=== PATIENT | female | born 1940 | race Hispanic/Latino ===

== ENCOUNTER 2017-03-30 15:05 | Emergency (ER) | payer OTHER ==
[2017-03-30 15:26] VITALS: BP 141/65; PULSE 81; RESP 20; TEMP 98.4; O2SAT 98
--- NOTE | 2017-03-30 15:33 | ED PDOC ---
HPI: Abdomen Time Seen by Provider: 03/30/17 15:05 Chief Complaint (Nursing): Abdominal Pain Chief Complaint (Provider): Abdominal Pain History Per: Patient History/Exam Limitations: no limitations Onset/Duration Of Symptoms: Hrs Current Symptoms Are (Timing): Still Present Additional Complaint(s): 76 y/o female presents to the emergency department with a complaint of intermittent abdominal pain since this morning. Associated with nausea, 1 episode of vomiting and feeling sweaty although unsure of fever and chills. Denies diarrhea, chest pain, or previous abdominal surgeries. Past Medical History Reviewed: Historical Data, Nursing Documentation, Vital Signs Vital Signs: Last Vital Signs Temp 98.4 F 03/30/17 15:23 Pulse 81 03/30/17 15:23 Resp 20 03/30/17 15:23 BP 141/65 03/30/17 15:23 Pulse Ox 98 03/30/17 20:09 - Medical History PMH: No Chronic Diseases - Surgical History Surgical History: No Surg Hx - Family History Family History: States: Unknown Family Hx - Home Medications Home Medications: Ambulatory Orders Medication Instructions Recorded Ciprofloxacin HCl [Cipro] 500 mg PO BID #20 tablet 03/30/17 Ondansetron ODT [Zofran ODT] 4 mg PO Q8 PRN #10 odt 03/30/17 Tamsulosin [Flomax] 0.4 mg PO DAILY #10 cap 03/30/17 oxyCODONE/Acetaminophen [Percocet 1 ea PO Q6 PRN #8 tab 03/30/17 5/325 mg Tab] - Allergies Allergies/Adverse Reactions: Allergies Allergy/AdvReac Type Severity Reaction Status Date / Time Penicillins Allergy RASH Verified 03/30/17 15:26 Review of Systems ROS Statement: Except As Marked, All Systems Reviewed And Found Negative Constitutional: Positive for: Sweats. Negative for: Fever, Chills Cardiovascular: Negative for: Chest Pain Gastrointestinal: Positive for: Nausea, Vomiting (1 episode), Abdominal Pain. Negative for: Diarrhea Genitourinary Female: Positive for: Dysuria Physical Exam - Reviewed Nursing Documentation Reviewed: Yes Vital Signs Reviewed: Yes - Physical Exam Appears: Positive for: Non-toxic, No Acute Distress Head Exam: Positive for: ATRAUMATIC, NORMAL INSPECTION, NORMOCEPHALIC Skin: Positive for: Normal Color, Warm, Dry Neck: Positive for: Normal, Supple Cardiovascular/Chest: Positive for: Regular Rate, Rhythm. Negative for: Murmur Respiratory: Positive for: Normal Breath Sounds. Negative for: Accessory Muscle Use, Respiratory Distress Gastrointestinal/Abdominal: Positive for: Soft, Tenderness (Mild discomfort noted to the suprapubic region). Negative for: Normal Exam Back: Positive for: Normal Inspection. Negative for: L CVA Tenderness, R CVA Tenderness Neurologic/Psych: Positive for: Alert, Oriented (x3) - Laboratory Results Result Diagrams: 03/30/17 15:40 03/30/17 15:40 Urine dip results: Positive for: Blood. Negative for: Leukocyte Esterase, Nitrate, Ketones, Glucose, Bilirubin - ECG O2 Sat by Pulse Oximetry: 98 (RA) Pulse Ox Interpretation: Normal - Progress ED Course And Treament: morphine 4mg iv x 2 doses Pyridium 100mg x 1dose Zofran 4 mg iv x 1 dose NS 1 liter wide open Urine dip notes (+) blood (-) leuk (-) nitrate d/w Dr. Williamson. Will see patient outpateint for renal colic. Does not believe anemia attributed to hematuria from renal colic. Recommends antibiotics and f/u with him saturday. d/w Dr. Clay. Unable to contact pmd regarding baseline hgb level. Patient noted dark stools 2 days. Guiac exam in ED with no signs of hematochezia or melena. Stool sent for lab testing. FLomax 0.4 mg po x 1 dose Patient allergic to pcn. Cipro 400mg iv x 1 dose given. Feels improved in ED after flomax/morphine 4mg x 2 doses d/w patient recommendation to stay overnight for observation of hgb level. patient does not want to stay inpatient and states she will f/u with pmd on saturday. RIsks and benefits of admission d/w patient and AMA paperwork signed. Medical Decision Making Medical Decision Making: Time: 15:27 Initial impression: Abdominal pain Initial plan: --Labs --Lipase --Urinalysis --Abd & Pelvis CT --Morphine 4 mg IVP --Sodium Chloride 1L IV 500 mls/hr --Zofran 4 mg IVP --Phenazopyridine 100 mg PO --Reevaluation Time: 16:03 --Type and Screen --PTT and Prothrombin Time: 1710 --CT ABD/PEL FINDINGS: LOWER THORAX: The lung bases are clear. LIVER: The liver is normal in size. There are benign coarse calcifications in the hepatic dome. No gross lesion or ductal dilatation. GALLBLADDER AND BILE DUCTS: No calcified gallstones. PANCREAS: The pancreas is normal in size without ductal dilatation or calcifications. SPLEEN: The spleen is normal in size. ADRENALS: Both adrenal glands are normal in size without discrete nodule. KIDNEYS AND URETERS: There is mild edema and enlargement of the right kidney with perinephric fat stranding. There is mild right hydronephrosis, diffuse dilatation of the right ureteral and a 1 mm punctate stone in the right distal ureteral. There is also a 2 mm stone in the right posterolateral urinary bladder distal to the UV junction. The left kidney is normal in size without hydronephrosis or nephrolithiasis. VASCULATURE: There are early atherosclerotic aortoiliac calcifications. The aorta is not dilated. BOWEL: The small bowel loops are normal in caliber. There is colonic diverticulosis without CT evidence for acute diverticulitis. There is no bowel dilatation or obstruction. APPENDIX: Normal appendix. PERITONEUM: No free fluid. No free air. LYMPH NODES: No enlarged lymph nodes. BLADDER: Unremarkable. REPRODUCTIVE: Unremarkable. BONES: No acute fracture. Diffuse bone demineralization and mild multilevel degenerative disc disease. OTHER FINDINGS: None. IMPRESSION: Findings are consistent with recent passage of right ureteral stones with a 2 mm stone in the right posterolateral urinary bladder distal to the UV junction and a 1 mm punctate stone in the right distal ureter. No obstructive uropathy. Time: 1735 --Additional dosage of Rocephin 1gm IVPB and Toradol 10mg IVP ordered for pain management. Time: 174 --Urology consult with Dr. Danni Williamson for evaluation per CT findings. Scribe Attestation: Documented by Bessie Parker, acting as a scribe for Brendon Russell MD. Provider Scribe Attestation: All medical record entries made by the Scribe were at my direction and personally dictated by me. I have reviewed the chart and agree that the record accurately reflects my personal performance of the history, physical exam, medical decision making, and the department course for this patient. I have also personally directed, reviewed, and agree with the discharge instructions and disposition. Disposition - Clinical Impression Clinical Impression: Renal colic - Patient ED Disposition Is Patient to be Admitted: No - Disposition Referrals: Diego Williamson MD [Staff Provider] - Disposition: Routine/Home Disposition Time: 19:29 Condition: STABLE Prescriptions: Ciprofloxacin HCl [Cipro] 500 mg PO BID #20 tablet Ondansetron ODT [Zofran ODT] 4 mg PO Q8 PRN #10 odt PRN Reason: Nausea/Vomiting oxyCODONE/Acetaminophen [Percocet 5/325 mg Tab] 1 ea PO Q6 PRN #8 tab PRN Reason: Pain, Severe (8-10) Tamsulosin [Flomax] 0.4 mg PO DAILY #10 cap Instructions: Renal Colic (ED), Anemia (ED) Forms: [facility] (Serbian)
[2017-03-30] MEDS ORDERED: Morphine 4 MG/ML VIAL IVP ONE (15:45)
[2017-03-30] MEDS ORDERED: Sodium Chloride 0.9% 1,000 ML IV STA (15:47)
[2017-03-30 15:49] LABS: BASO # 0.1 K/uL (0.0-0.2); BASO % 0.9 % (0.0-2.0); EOS # 0.1 K/uL (0.0-0.7); EOS % 0.7 % (0.0-4.0); HEMATOCRIT 25.4 % (34.0-47.0); LYMPH # 1.8 K/uL (1.0-4.3); LYMPH % 16.7 % (20.0-40.0); MEAN CELL VOLUME 70.3 fl (81.0-99.0); MEAN CORPUSCULAR HEMOGLOBIN 21.5 pg (27.0-31.0); MEAN CORPUSCULAR HGB CONC 30.6 g/dL (33.0-37.0); MEAN PLATELET VOLUME 7.8 fl (7.2-11.7); MONO # 0.8 K/uL (0.0-0.8); MONO % 7.9 % (0.0-10.0); NEUT # 7.8 K/uL (1.8-7.0); NEUT % 73.8 % (50.0-75.0); WHITE BLOOD COUNT 10.6 K/uL (4.8-10.8)
[2017-03-30 15:59] LABS: ALB/GLOB RATIO 1.3 (1.0-2.1); ALKALINE PHOSPHATASE 68 U/L (38-126); ALT/SGPT 25 U/L (9-52); AST/SGOT 18 U/L (14-36); BILIRUBIN,TOTAL 0.2 mg/dl (0.2-1.3); BLOOD UREA NITROGEN 14 mg/dl (7-17); CALCIUM 9.1 mg/dL (8.4-10.2); CARBON DIOXIDE 21 mmol/L (22-30); CHLORIDE 108 mmol/L (98-107); GFR AFRICAN-AMERICAN > 60; GLUCOSE,RANDOM 140 mg/dL (65-105); LIPASE 74 U/L (23-300); POTASSIUM 3.7 MMOL/L (3.6-5.0); SODIUM 140 mmol/l (132-148); TOTAL PROTEIN 6.8 G/DL (6.3-8.2)
[2017-03-30 16:05] LABS: URINE BACTERIA RARE (<OCC); URINE BILIRUBIN NEGATIVE (NEGATIVE); URINE BLOOD LARGE (NEGATIVE); URINE COLOR YELLOW (YELLOW); URINE GLUCOSE (UA) 50 mg/dL (Normal); URINE KETONE 20 mg/dL (NEGATIVE); URINE LEUKOCYTE ESTERASE NEG Leu/uL (Negative); URINE PROTEIN NEGATIVE (NEGATIVE); URINE UROBILINOGEN 0.2-1.0 mg/dL (0.2-1.0); WBC URINE 3 /hpf (0-5)
[2017-03-30 16:06] LABS: RBC URINE 27 /hpf (0-3)
[2017-03-30 17:10] LABS: PARTIAL THROMBOPLASTIN TIME 24.8 Seconds (25.6-37.1)
--- NOTE | 2017-03-30 17:11 | CT ---
PROCEDURE: CT Abdomen and Pelvis without intravenous contrast HISTORY: DYSURIA WITH HEMATURIA; R/O RENAL COLIC COMPARISON: None TECHNIQUE: CT scan of the abdomen and pelvis was performed without administration of oral or intravenous contrast. Coronal and sagittal reformatted images were obtained. Radiation dose: Total exam DLP = 445.79 MGy-cm. This CT exam was performed using one or more of the following dose reduction techniques: Automated exposure control, adjustment of the mA and/or kV according to patient size, and/or use of iterative reconstruction technique. FINDINGS: LOWER THORAX: The lung bases are clear. LIVER: The liver is normal in size. There are benign coarse calcifications in the hepatic dome. No gross lesion or ductal dilatation. GALLBLADDER AND BILE DUCTS: No calcified gallstones. PANCREAS: The pancreas is normal in size without ductal dilatation or calcifications. SPLEEN: The spleen is normal in size. ADRENALS: Both adrenal glands are normal in size without discrete nodule. KIDNEYS AND URETERS: There is mild edema and enlargement of the right kidney with perinephric fat stranding. There is mild right hydronephrosis, diffuse dilatation of the right ureteral and a 1 mm punctate stone in the right distal ureteral. There is also a 2 mm stone in the right posterolateral urinary bladder distal to the UV junction. The left kidney is normal in size without hydronephrosis or nephrolithiasis. VASCULATURE: There are early atherosclerotic aortoiliac calcifications. The aorta is not dilated. BOWEL: The small bowel loops are normal in caliber. There is colonic diverticulosis without CT evidence for acute diverticulitis. There is no bowel dilatation or obstruction. APPENDIX: Normal appendix. PERITONEUM: No free fluid. No free air. LYMPH NODES: No enlarged lymph nodes. BLADDER: Unremarkable. REPRODUCTIVE: Unremarkable. BONES: No acute fracture. Diffuse bone demineralization and mild multilevel degenerative disc disease. OTHER FINDINGS: None. IMPRESSION: Findings are consistent with recent passage of right ureteral stones with a 2 mm stone in the right posterolateral urinary bladder distal to the UV junction and a 1 mm punctate stone in the right distal ureter. No obstructive uropathy.
[2017-03-30] MEDS ORDERED: cefTRIAXone (Rocephin) 1 gm Inj IVPB ONE (17:34)
[2017-03-30] MEDS ORDERED: cefTRIAXone (Rocephin) 1 gm Inj ONE (17:45)
[2017-03-30] MEDS ORDERED: Ciprofloxacin 400mg/200ml D5W 400 MG/200 ML BAG IVPB STA (18:10)
== END 2017-03-30 20:08 | disposition home or self-care (01) ==
LOC: H.ER 15:05
DX: N20.0 Calculus of kidney (principal); D64.9 Anemia, unspecified; Z88.0 Allergy status to penicillin
CPT/HCPCS: 74176; 80053; 81003; 83690; 85025; 85610; 85730; 86850; 86900; 87086; 96361; 96365; 96375; 96376; 99283; G0328; J0744; J2270; J2405; J7040

== ENCOUNTER 2017-10-03 17:57 | Inpatient (IN) | payer MEDICARE, OTHER ==
[2017-10-03] MEDS ORDERED: Sodium Chloride 0.9% 1,000 ML IV STA (19:19)
--- NOTE | 2017-10-03 19:23 | ED PDOC ---
Syncope/Near Syncope/Dizziness Time Seen by Provider: 10/03/17 18:52 Chief Complaint (Nursing): Syncope Chief Complaint (Provider): Syncope History Per: Patient History/Exam Limitations: no limitations Onset/Duration Of Symptoms: Days (2) Current Symptoms Are (Timing): Still Present Additional Complaint(s): Pt. with weakness all over. Dizziness and had a syncope episode for 2 seconds today. No numbness, tingles, headaches, abd pain, chest pain, dyspnea, leg pain. No nasal congestion. Past Medical History Reviewed: Nursing Documentation, Vital Signs Vital Signs: Last Vital Signs Temp 97.9 F 10/03/17 18:35 Pulse 73 10/03/17 18:35 Resp 16 10/03/17 18:35 BP 118/66 10/03/17 18:35 Pulse Ox 97 10/03/17 18:35 - Medical History PMH: Back Problems Other PMH: kidney stones; thyroid issues - Family History Family History: States: Unknown Family Hx - Living Arrangements Living Arrangements: With Family - Home Medications Home Medications: Ambulatory Orders Medication Instructions Recorded Ciprofloxacin HCl [Cipro] 500 mg PO BID #20 tablet 03/30/17 Ondansetron ODT [Zofran ODT] 4 mg PO Q8 PRN #10 odt 03/30/17 Tamsulosin [Flomax] 0.4 mg PO DAILY #10 cap 03/30/17 oxyCODONE/Acetaminophen [Percocet 1 ea PO Q6 PRN #8 tab 03/30/17 5/325 mg Tab] - Allergies Allergies/Adverse Reactions: Allergies Allergy/AdvReac Type Severity Reaction Status Date / Time Penicillins Allergy RASH Verified 03/30/17 15:26 Review of Systems ROS Statement: Except As Marked, All Systems Reviewed And Found Negative Constitutional: Positive for: Chills, Weakness Neurological: Positive for: Weakness, Dizziness Physical Exam - Reviewed Nursing Documentation Reviewed: Yes Vital Signs Reviewed: Yes - Physical Exam Appears: Positive for: Non-toxic, No Acute Distress Head Exam: Positive for: ATRAUMATIC, NORMAL INSPECTION, NORMOCEPHALIC Skin: Positive for: Normal Color, Warm, DRY Eye Exam: Positive for: EOMI, Normal appearance, PERRL ENT: Positive for: Normal ENT Inspection Neck: Positive for: Normal, Painless ROM Cardiovascular/Chest: Positive for: Regular Rate, Rhythm Respiratory: Positive for: CNT, Normal Breath Sounds Gastrointestinal/Abdominal: Positive for: Normal Exam, Bowel Sounds, Soft. Negative for: Tenderness Back: Positive for: Normal Inspection. Negative for: L CVA Tenderness, R CVA Tenderness Extremity: Positive for: Normal ROM, Tenderness (mild on R groin on moving hip joint). 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 Negative for: Motor/Sensory Deficits - Laboratory Results Result Diagrams: 10/03/17 19:38 10/03/17 19:38 Interpretation Of Abn Labs: 8.9hg, 2.7 k, 22 bun - ECG ECG: Positive for: Interpreted By Me, Viewed By Me ECG Rhythm: Positive for: Nonspecific Changes O2 Sat by Pulse Oximetry: 97 Pulse Ox Interpretation: Normal - Radiology X-Ray: Interpreted by Me, Viewed By Me X-Ray Interpretation: No Acute Disease - CT Scan/US ct Other Rad Studies (CT/US): Read By Radiologist Other Rad Interpretation: no acute - Progress ED Course And Treament: 2115: Stable. AAOx3. Pain controlled. Spoke with Dr. Hernandez. Will admit obs tel. Disposition - Clinical Impression Clinical Impression: Syncope, Hypokalemia, Dehydration - Patient ED Disposition Is Patient to be Admitted: Yes Counseled Patient/Family Regarding: Studies Performed, Diagnosis - Disposition Disposition Time: 21:19 Condition: STABLE - Pt Status Changed To: Hospital Disposition Of: Observation - POA Present On Arrival: None
[2017-10-03 20:03] LABS: BASO % 0.5 % (0.0-2.0); EOS % 0.1 % (0.0-4.0); HEMOGLOBIN 8.9 g/dL (12.0-16.0); LYMPH # 0.9 K/uL (1.0-4.3); LYMPH % 12.7 % (20.0-40.0); MEAN CELL VOLUME 62.4 fl (81.0-99.0); MEAN CORPUSCULAR HEMOGLOBIN 19.6 pg (27.0-31.0); MEAN CORPUSCULAR HGB CONC 31.4 g/dL (33.0-37.0); MEAN PLATELET VOLUME 8.7 fl (7.2-11.7); MONO # 0.9 K/uL (0.0-0.8); MONO % 13.7 % (0.0-10.0); RBC 4.52 Mil/uL (3.80-5.20); RED CELL DISTRIBUTION WIDTH 20.1 % (11.5-14.5); WHITE BLOOD COUNT 6.8 K/uL (4.8-10.8)
[2017-10-03 20:11] LABS: INR 1.2 (0.9-1.2); PROTHROMBIN TIME 11.9 Seconds (9.8-13.1)
[2017-10-03 20:12] LABS: ALB/GLOB RATIO 1.2 (1.0-2.1); ALBUMIN 4.3 g/dL (3.5-5.0); ALT/SGPT 30 U/L (9-52); AST/SGOT 19 U/L (14-36); BLOOD UREA NITROGEN 22 mg/dl (7-17); CALCIUM 9.2 mg/dL (8.4-10.2); GFR AFRICAN-AMERICAN > 60; GFR NON-AFRICAN AMERICAN > 60
[2017-10-03 20:16] LABS: PARTIAL THROMBOPLASTIN TIME 24.7 Seconds (25.6-37.1)
[2017-10-03] MEDS ORDERED: Potassium Chloride 20 mEq ER Tab PO STA (20:45)
--- NOTE | 2017-10-03 20:55 | CT ---
EXAM: CT Head Without Intravenous Contrast CLINICAL HISTORY: 76 years old, female; Pain and signs and symptoms; Other: Poss syncope x2; Headache; Headache not specified TECHNIQUE: Axial computed tomography images of the head/brain without intravenous contrast. All CT scans at this facility use one or more dose reduction techniques, viz.: automated exposure control; ma/kV adjustment per patient size (including targeted exams where dose is matched to indication; i.e. head); or iterative reconstruction technique. Coronal and sagittal reformatted images were created and reviewed. COMPARISON: No relevant prior studies available. FINDINGS: Brain: Mild atrophy. No intracranial hemorrhage. No mass. Minimal decreased attenuation within periventricular white matter. No definite edema. Ventricles: No hydrocephalus. Bones/joints: No acute fracture. Soft tissues: Unremarkable. Sinuses: No acute sinusitis. Mastoid air cells: No mastoid effusion. Orbits: Unremarkable as visualized. IMPRESSION: 1. Nonspecific white matter changes. Acute infarction may be CT occult within first 24 hours. If a focal deficit persists, consider followup CT or MRI for further evaluation. 2. Incidental/non-acute findings are described above.
[2017-10-03] MEDS ORDERED: Potassium Chloride 20 mEq ER Tab PO ONE (20:59)
--- NOTE | 2017-10-03 23:19 | RAD ---
HISTORY: dyspnea COMPARISON: No prior. FINDINGS: LUNGS: No active pulmonary disease. PLEURA: No significant pleural effusion identified, no pneumothorax apparent. CARDIOVASCULAR: Normal. OSSEOUS STRUCTURES: No significant abnormalities. VISUALIZED UPPER ABDOMEN: Normal. OTHER FINDINGS: Skin fold left chest laterally. IMPRESSION: No acute cardiopulmonary disease appreciated.
--- NOTE | 2017-10-03 23:23 | RAD ---
PROCEDURE: Right Hip Radiographs. HISTORY: pain COMPARISON: None. FINDINGS: BONES: No acute fracture or destructive bony lesion identified. Diffuse osteopenia suggests osteoporosis. JOINTS: Degenerative changes seen in the bilateral sacroiliac and hip joints symmetrically. SOFT TISSUES: Normal. OTHER FINDINGS: Advanced multilevel degenerative disc disease seen throughout the visualized lumbar spine. IMPRESSION: No acute fracture dislocation right hip with the pelvic ring intact. degenerative changes are as described above family throughout the pelvis but also incidentally to visualized lumbar spine. Diffuse osteopenia suggests osteoporosis.
[2017-10-04] MEDS: Potassium Ch 20mEq in D5-1/2NS 1,000 ML IV SCH ×2 (05:13→22:38)
[2017-10-04 06:19] LABS: BASO # 0.1 K/uL (0.0-0.2); BASO % 1.3 % (0.0-2.0); EOS # 0.1 K/uL (0.0-0.7); EOS % 1.2 % (0.0-4.0); HEMOGLOBIN 8.3 g/dL (12.0-16.0); LYMPH # 1.7 K/uL (1.0-4.3); LYMPH % 24.9 % (20.0-40.0); MEAN CELL VOLUME 63.3 fl (81.0-99.0); MEAN CORPUSCULAR HEMOGLOBIN 19.8 pg (27.0-31.0); MEAN CORPUSCULAR HGB CONC 31.4 g/dL (33.0-37.0); MEAN PLATELET VOLUME 8.6 fl (7.2-11.7); MONO # 1.1 K/uL (0.0-0.8); MONO % 15.8 % (0.0-10.0); NEUT # 3.9 K/uL (1.8-7.0); NEUT % 56.8 % (50.0-75.0); NRBC % 0.2 % (0.0-0.0); RBC 4.21 Mil/uL (3.80-5.20); RED CELL DISTRIBUTION WIDTH 20.3 % (11.5-14.5); WHITE BLOOD COUNT 6.8 K/uL (4.8-10.8)
[2017-10-04 06:43] LABS: B-TYPE NATRIURETIC PEPTIDE 113 pg/ml (0-900)
[2017-10-04 06:48] LABS: T4 8.76 ug/dl (5.5-11.0)
[2017-10-04] MEDS ORDERED: methIMAzole 5 MG TAB PO SCH (09:00)
[2017-10-04] MEDS: methIMAzole 5 MG TAB PO SCH (09:24)
[2017-10-04 11:41] LABS: BLOOD UREA NITROGEN 20 mg/dl (7-17); GFR AFRICAN-AMERICAN > 60; GFR NON-AFRICAN AMERICAN > 60
--- NOTE | 2017-10-04 12:28 | HP ---
HISTORY OF PRESENT ILLNESS: Ms. Mcdonald is a 76-year-old female who was admitted via the Emergency Room because of dizziness and syncopal episode at home. Last time for few seconds prior to admission, she indicates that she passed out at home and felt dizzy and has been feeling dizzy all week, but had worsened on the day of admission. She has a history of and kidney stones who was recently admitted to [facility] where the diagnosis was made. 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 FAMILY HISTORY: Non-revealing. SOCIAL HISTORY: She does not smoke or drink. REVIEW OF SYSTEMS: Essentially remarkable for palpitation and kidney stones. PHYSICAL EXAMINATION: GENERAL: The patient is alert, oriented, and appears to be still somewhat unsteady with her gait and somewhat dizzy on getting out of bed. VITAL SIGNS: Blood pressure 118/66, pulse of 73, and respiratory rate 16. She is afebrile. O2 sat 97% on room air. SKIN: Shows fair turgor. HEENT: Pupils are equal and reactive to light and accommodation. Mouth shows fair hygiene. JVP flat. LUNGS: Clear. HEART: Regular. No murmurs or gallop. ABDOMEN: Soft and nontender. No organomegaly. EXTREMITIES: Shows no edema or cyanosis. CENTRAL NERVOUS SYSTEM: Except for mild unsteadiness of gait essentially unremarkable. LABORATORY DATA: WBC 6.9, hemoglobin 8.9, and platelet count 274,000. Sodium of 137, potassium of 2.7, BUN of 22, creatinine of 0.9, and serum glucose of 130. EKG; regular sinus rhythm, otherwise, unremarkable. Chest x-ray shows no active cardiopulmonary pathology. CT scan of the brain shows nonspecific white matter changes. Otherwise unremarkable. IMPRESSION: Syncope that is probably secondary to electrolyte imbalance and dehydration, chronic anemia, history of palpitations in the past, history of renal calculi colic, and history of . PLAN: IV hydration, electrolyte replacement therapy. We will obtain consultation with Endocrinology. The patient wants to go home because she has a cat at home that she has to take care of. She is advised to stay in hospital for electrolyte replacement and rehydration. We will possibly plan discharge in a.m. once clinically stable and have her follow up with her primary care physician. Further therapy will depend on the findings. We would also give iron therapy for now. Archei Hernandez MD
--- NOTE | 2017-10-04 18:06 | CARD ---
APPROVED REPORT EKG Measurement Heart [id number] <Conclusion> Normal sinus rhythm Nonspecific ST abnormality Abnormal ECG
--- NOTE | 2017-10-05 01:59 | CON ---
ENDOCRINOLOGY CONSULTATION DATE: LOCATION: ICU room 421. HISTORY OF PRESENT ILLNESS: This is a 76-year-old female with known history of hypertension and dyslipidemia, presenting here with progressively worsening dizziness, lightheadedness and syncopal episode and is now being referred for endocrine evaluation and management. PAST MEDICAL HISTORY: As mentioned above; history of hypertension and dyslipidemia; history of hyperthyroidism, currently on Tapazole given as 5 mg once daily and history of nephrolithiasis with no recent stone passage at this time. FAMILY HISTORY: Positive for hypertension and heart disease. SOCIAL HISTORY: The patient has supportive family. No known substance use. REVIEW OF SYSTEMS: Admits to generalized body weakness with easy fatigability and tiredness and suboptimal energy level, worse in the last 2-3 days prior to admission. Moreover, admits to progressive bouts of dizziness and lightheadedness, worse on the day of admission with a supervening near syncope and actual syncopal episode on the day of admission. No chest pains or palpitations or PNDs. Her oral intake has been variable with occasional nausea and dyspepsia with habitual constipation. PHYSICAL EXAMINATION GENERAL: This an average built female in no apparent distress. VITAL SIGNS: Blood pressure of 140/80, pulse of 70 beats per minute regular, temperature 98, respirations 20, height is 5 feet and 3 inches and weight is 130 pounds. HEENT: Head normocephalic. Eyes anicteric with pink conjunctivae. Funduscopy not possible at this time. Ears, nose and throat otherwise normal. NECK: Supple. Thyroid gland is normal in size. No carotid bruits or cervical adenopathy. CARDIOPULMONARY: Some adynamic precordium. S1 and S2 is rapid and regular. LUNGS: Clear to auscultation. ABDOMEN: Flat and soft with positive bowel sounds. EXTREMITIES: No peripheral edema. Pulses are +2 bilaterally. LABORATORY DATA: Her chemistry showed a BUN of 22, sodium 137, potassium 2.7, chloride 89, CO2 of 34, glucose 130 and creatinine 0.9. Her hemoglobin is 8.38 with a hematocrit of 26.6. Her thyroid studies showed a T4 of 8.76 with a TSH of 1.34. Troponin is less than 0.1 and proBNP is 113. ASSESSMENT: This is a 76-year-old female with a syncopal episode and associated generalized body weakness and easy fatigability and tiredness and also has significant history of hyperthyroidism, currently clinically and biochemically euthyroid on low-dose medical therapy as mentioned and given. She most likely has underlying autoimmune thyroiditis, i.e., Graves disease with no overt palpable thyroid nodules at this time nor any cervical adenopathy otherwise. She also has hypokalemia, the etiology of which has to be ascertained whether we are dealing with GI versus metabolic event causing the aforementioned. Usually, hyperthyroid present with hypokalemia, but at this time the patient is actually biochemically and is euthyroid as noted. PLAN OF MANAGEMENT: As discussed with the staff, we will continue the modified Tapazole given at the lower dose of 2.5 mg once daily as ordered. We will obtain a comprehensive thyroid hormonal profile tomorrow with a total and free T4 and TSH and recruit also thyroid peroxidase antibody and a thyroid stimulating immunoglobulin to confirm and/or indicate the presence of underlying thyroid autoimmunity. We will obtain serial chemistries and supplement accordingly as needed. We will also obtain a serum cortisol ACTH and plasma renin activity to exclude any underlying involvement of the plasma renin angiotensin system. We will follow and advise accordingly. Victoria Wade MD
[2017-10-05 04:49] LABS: HEMOGLOBIN 8.9 g/dL (12.0-16.0); MEAN CELL VOLUME 68.1 fl (81.0-99.0); MEAN CORPUSCULAR HEMOGLOBIN 20.8 pg (27.0-31.0); MEAN CORPUSCULAR HGB CONC 30.6 g/dL (33.0-37.0); RBC 4.28 Mil/uL (3.80-5.20); RED CELL DISTRIBUTION WIDTH 20.6 % (11.5-14.5); WHITE BLOOD COUNT 7.3 K/uL (4.8-10.8)
[2017-10-05 05:02] LABS: BLOOD UREA NITROGEN 17 mg/dl (7-17); CALCIUM 9.1 mg/dL (8.4-10.2); GFR AFRICAN-AMERICAN > 60; GFR NON-AFRICAN AMERICAN > 60
[2017-10-05 05:24] LABS: T4 8.83 ug/dl (5.5-11.0)
[2017-10-05] MEDS: methIMAzole 5 MG TAB PO SCH (08:19)
[2017-10-05 08:20] VITALS: TEMP 98.4
[2017-10-05 09:08] VITALS: BP 106/56; PULSE 61; RESP 20; O2SAT 95
--- NOTE | 2017-10-05 11:25 | CP.PCM.DIS ---
Provider - Provider Date of Admission: 10/04/17 08:22 Attending physician: Archie Hernandez MD Time Spent in preparation of Discharge (in minutes): 30 Diagnosis - Discharge Diagnosis (1) Dehydration Status: Acute (2) Hypokalemia Status: Acute (3) Syncope Status: Acute (4) Thyroid disorder Status: Acute (5) Chronic anemia Status: Acute Hospital Course - Lab Results Lab Results: Micro Results 10/03/17 23:55 Blood Blood Culture - Preliminary NO GROWTH AFTER 24 HOURS 10/03/17 19:38 Blood Blood Culture - Preliminary NO GROWTH AFTER 24 HOURS Most Recent Lab Values WBC 7.3 K/uL (4.8-10.8) 10/05/17 04:20 RBC 4.28 Mil/uL (3.80-5.20) 10/05/17 04:20 Hgb 8.9 g/dL (12.0-16.0) L 10/05/17 04:20 Hct 29.1 % (34.0-47.0) L 10/05/17 04:20 MCV 68.1 fl (81.0-99.0) L D 10/05/17 04:20 MCH 20.8 pg (27.0-31.0) L 10/05/17 04:20 MCHC 30.6 g/dL (33.0-37.0) L 10/05/17 04:20 RDW 20.6 % (11.5-14.5) H 10/05/17 04:20 Plt Count 282 K/uL (130-400) 10/05/17 04:20 MPV 8.6 fl (7.2-11.7) 10/04/17 05:55 Neut % (Auto) 56.8 % (50.0-75.0) 10/04/17 05:55 Lymph % (Auto) 24.9 % (20.0-40.0) 10/04/17 05:55 Gregg % (Auto) 15.8 % (0.0-10.0) H 10/04/17 05:55 Eos % (Auto) 1.2 % (0.0-4.0) 10/04/17 05:55 Baso % (Auto) 1.3 % (0.0-2.0) 10/04/17 05:55 Neut # (Auto) 3.9 K/uL (1.8-7.0) 10/04/17 05:55 Lymph # (Auto) 1.7 K/uL (1.0-4.3) 10/04/17 05:55 Gregg # (Auto) 1.1 K/uL (0.0-0.8) H 10/04/17 05:55 Eos # (Auto) 0.1 K/uL (0.0-0.7) 10/04/17 05:55 Baso # (Auto) 0.1 K/uL (0.0-0.2) 10/04/17 05:55 PT 11.9 Seconds (9.8-13.1) 10/03/17 19:38 INR 1.2 (0.9-1.2) 10/03/17 19:38 APTT 24.7 Seconds (25.6-37.1) L 10/03/17 19:38 Sodium 141 mmol/l (132-148) 10/05/17 04:20 Potassium 3.2 MMOL/L (3.6-5.0) L 10/05/17 04:20 Chloride 96 mmol/L (98-107) L 10/05/17 04:20 Carbon Dioxide 35 mmol/L (22-30) H 10/05/17 04:20 Anion Gap 13 (10-20) 10/05/17 04:20 BUN 17 mg/dl (7-17) 10/05/17 04:20 Creatinine 0.8 mg/dl (0.7-1.2) 10/05/17 04:20 Est GFR ( Amer) > 60 10/05/17 04:20 Est GFR (Non-Af Amer) > 60 10/05/17 04:20 Random Glucose 104 mg/dL (65-105) 10/05/17 04:20 Calcium 9.1 mg/dL (8.4-10.2) 10/05/17 04:20 Total Bilirubin 0.3 mg/dl (0.2-1.3) 10/03/17 19:38 AST 19 U/L (14-36) 10/03/17 19:38 ALT 30 U/L (9-52) 10/03/17 19:38 Alkaline Phosphatase 100 U/L (38-126) 10/03/17 19:38 Troponin I < 0.0120 ng/mL (0.00-0.120) 10/04/17 05:55 NT-Pro-B Natriuret Pep 113 pg/ml (0-900) 10/04/17 05:55 Total Protein 8.1 G/DL (6.3-8.2) 10/03/17 19:38 Albumin 4.3 g/dL (3.5-5.0) 10/03/17 19:38 Globulin 3.7 gm/dL (2.2-3.9) 10/03/17 19:38 Albumin/Globulin Ratio 1.2 (1.0-2.1) 10/03/17 19:38 Free T4 1.34 ng/dL (0.78-2.19) 10/05/17 04:20 Thyroxine (T4) 8.83 ug/dl (5.5-11.0) 10/05/17 04:20 TSH 3rd Generation 1.23 mIU/ML (0.46-4.68) 10/05/17 04:20 - Hospital Course Hospital Course: CLINICALLY IMPROVED NO RECURRENCE OF SYNCOPE HYPERKALEMIA IMPROVED Discharge Exam - Head Exam Head Exam: ATRAUMATIC, NORMAL INSPECTION, NORMOCEPHALIC - Eye Exam Eye Exam: EOMI, Normal appearance, PERRL Pupil Exam: NORMAL ACCOMODATION, PERRL - GI/Abdominal Exam GI & Abdominal Exam: Normal Bowel Sounds - Rectal Exam Rectal Exam: NORMAL INSPECTION - Neurological Exam Neurological exam: Alert, CN II-XII Intact, Normal Gait, Oriented x3, Reflexes Normal - Psychiatric Exam Psychiatric exam: Normal Affect, Normal Mood - Skin Skin Exam: Dry, Intact, Normal Color, Warm Discharge Plan - Follow Up Plan Condition: STABLE Disposition: HOME/ ROUTINE Patient education suggested?: Yes Additional Instructions: DISCHARGE HOME TODAY FOLLOW UP WITH PRIVATE PHYSICIAN WILL GIVE KDUR X 2 DAYS AND FEOSOL REPEAT LABS BY PMD
--- NOTE | 2017-10-07 08:31 | PN ---
DATE: ENDOCRINOLOGY FOLLOWUP NOTE LOCATION: In room 421, ICU. SUBJECTIVE: This is a 76-year-old female presenting here with syncopal event and progressive dizziness and lightheadedness with associated generalized body weakness and is now being followed closely for metabolic management. She also had moderate hypokalemia with underlying dehydration as noted. LABORATORY DATA: Her latest thyroid studies today showed T4 of 8.83 with a TSH of 1.23 and the free T4 from 1.34. Her latest chemistry showed a BUN of 17, sodium of 141, potassium of 3.2, chloride of 96, CO2 of 35, glucose of 104 and creatinine of 0.8. IMPRESSION AND PLAN: So at this time, we will continue the low-dose medical therapy with thioureas i.e., Tapazole and Tapazole given as 2.5 mg once daily as ordered. She also ongoing workup for moderate iron deficiency anemia as noted. We will obtain serial chemistries and supplement accordingly as needed. We will also sent out hormonal assays to include plasma renin activity and serum cortisol level as ordered. also dealing with a renin angiotensin disorder causing the protracted hypokalemia as noted. We will follow and advise accordingly. Victoria Wade MD
== END 2017-10-05 12:00 | disposition home or self-care (01) | DRG 641 ==
LOC: H.ER 17:57 → H.ERHOLD 21:19 → INTOOBSV 21:19 → OBSVTOIN 21:19 → H.ICU/CCU 10-04 11:55
PROVIDERS: ADMIT Internal Medicine Pulmonary Disease; ATTEND Internal Medicine Pulmonary Disease
DX: E87.6 Hypokalemia (principal); E86.0 Dehydration; E05.90 Thyrotoxicosis, unspecified without thyrotoxic crisis or storm; D50.9 Iron deficiency anemia, unspecified; Z88.0 Allergy status to penicillin; I10 Essential (primary) hypertension; E78.5 Hyperlipidemia, unspecified

== ENCOUNTER 2017-10-26 12:50 | Inpatient (IN) | payer MEDICARE ==
[2017-10-26] MEDS ORDERED: Sodium Chloride 0.9% 1,000 ML IV STA (13:33)
--- NOTE | 2017-10-26 13:38 | ED PDOC ---
Syncope/Near Syncope/Dizziness Time Seen by Provider: 10/26/17 13:16 Chief Complaint (Nursing): Dizziness/Lightheaded Chief Complaint (Provider): Dizzy History Per: Patient History/Exam Limitations: no limitations Onset/Duration Of Symptoms: Days (3) Current Symptoms Are (Timing): Still Present Additional Complaint(s): Pt. feeling light-headed, weakness all over. [place] the same 3 weeks ago approx and admitted here. Was dc and felt better. Back as same weakness occurring. No chest pain, headache, syncope, fever, cough, dyspnea, neck pain, numbness, tingles, nausea, vomit, diarrhea. No dysuria. Past Medical History Reviewed: Nursing Documentation, Vital Signs Vital Signs: Last Vital Signs Temp 98.5 F 10/26/17 13:00 Pulse 77 10/26/17 13:00 Resp 18 10/26/17 13:00 BP 113/66 10/26/17 13:00 Pulse Ox 99 10/26/17 13:00 - Medical History PMH: Anemia, Back Problems, Hypothyroidism - Surgical History Surgical History: No Surg Hx - Family History Family History: States: Unknown Family Hx - Living Arrangements Living Arrangements: With Family - Home Medications Home Medications: Ambulatory Orders Medication Instructions Recorded Sertraline [Zoloft] 50 mg PO DAILY 10/03/17 Ferrous Sulfate [Feosol] 325 mg PO BID #60 tab 10/05/17 Potassium Chloride [K-Dur 20] 20 meq PO DAILY #2 tab 10/05/17 methIMAzole [Tapazole] 2.5 mg PO DAILY #30 tab 10/05/17 - Allergies Allergies/Adverse Reactions: Allergies Allergy/AdvReac Type Severity Reaction Status Date / Time Penicillins Allergy RASH Verified 03/30/17 15:26 Review of Systems ROS Statement: Except As Marked, All Systems Reviewed And Found Negative Constitutional: Positive for: Weakness Neurological: Positive for: Dizziness Physical Exam - Reviewed Nursing Documentation Reviewed: Yes Vital Signs Reviewed: Yes - Physical Exam Appears: Positive for: Non-toxic, No Acute Distress Head Exam: Positive for: ATRAUMATIC, NORMAL INSPECTION, NORMOCEPHALIC Skin: Positive for: Normal Color, Warm, DRY Eye Exam: Positive for: EOMI, Normal appearance, PERRL ENT: Positive for: Normal ENT Inspection Neck: Positive for: Normal, Painless ROM Cardiovascular/Chest: Positive for: Regular Rate, Rhythm Respiratory: Positive for: CNT, Normal Breath Sounds Gastrointestinal/Abdominal: Positive for: Normal Exam, Bowel Sounds, Soft. Negative for: Tenderness Back: Positive for: Normal Inspection. Negative for: L CVA Tenderness, R CVA Tenderness Extremity: Positive for: Normal ROM. Negative for: Tenderness, Pedal Edema Neurologic/Psych: Positive for: Alert, bell clerk II-XII, Oriented. Negative for: Motor/Sensory Deficits, Aphasia, Facial Droop - Laboratory Results Result Diagrams: 10/26/17 14:07 Interpretation Of Abn Labs: 2.8 k; low chloride - ECG ECG: Positive for: Interpreted By Me, Viewed By Me ECG Rhythm: Positive for: Normal QRS, Normal ST Segment, Sinus Rhythm O2 Sat by Pulse Oximetry: 99 Pulse Ox Interpretation: Normal - Radiology X-Ray: Read By Radiologist X-Ray Interpretation: No Acute Disease - Progress ED Course And Treament: 1339: Stable. AAOx3. CT from 10/03/17 with no acute. Will get blood work and eval. 1510: Stable. AAOx3. Spoke with Dr. Hernandez. Will admit and give further orders when pt. reaches floor. Disposition - Clinical Impression Clinical Impression: Dizziness, Hypokalemia, Dehydration - Patient ED Disposition Is Patient to be Admitted: Yes Counseled Patient/Family Regarding: Studies Performed, Diagnosis - Disposition Disposition Time: 15:13 Condition: FAIR - Pt Status Changed To: Hospital Disposition Of: Observation - POA Present On Arrival: None
[2017-10-26 14:22] LABS: BASO % 0.7 % (0.0-2.0); EOS # 0.1 K/uL (0.0-0.7); EOS % 1.2 % (0.0-4.0); HEMOGLOBIN 9.1 g/dL (12.0-16.0); LYMPH # 1.1 K/uL (1.0-4.3); LYMPH % 19.1 % (20.0-40.0); MEAN CORPUSCULAR HEMOGLOBIN 20.9 pg (27.0-31.0); MEAN CORPUSCULAR HGB CONC 31.1 g/dL (33.0-37.0); MEAN PLATELET VOLUME 7.8 fl (7.2-11.7); MONO # 0.9 K/uL (0.0-0.8); MONO % 15.6 % (0.0-10.0); NEUT # 3.6 K/uL (1.8-7.0); NEUT % 63.4 % (50.0-75.0); NRBC % 0.1 % (0.0-0.0); RBC 4.38 Mil/uL (3.80-5.20); RED CELL DISTRIBUTION WIDTH 22.8 % (11.5-14.5); WHITE BLOOD COUNT 5.7 K/uL (4.8-10.8)
[2017-10-26 14:37] LABS: ALBUMIN 3.6 g/dL (3.5-5.0); ALT/SGPT 32 U/L (9-52); AST/SGOT 32 U/L (14-36); BLOOD UREA NITROGEN 15 mg/dl (7-17); CALCIUM 8.8 mg/dL (8.4-10.2); GFR AFRICAN-AMERICAN > 60; GFR NON-AFRICAN AMERICAN > 60
--- NOTE | 2017-10-26 14:39 | RAD ---
HISTORY: Weakness. COMPARISON: Comparison made chest radiograph 10/03/2017 FINDINGS: LUNGS: Suspect minor right basilar atelectasis Right paratracheal density felt to be secondary to great vessels silhouette PLEURA: No significant pleural effusion identified, no pneumothorax apparent. CARDIOVASCULAR: Normal. OSSEOUS STRUCTURES: No significant abnormalities. VISUALIZED UPPER ABDOMEN: Normal. OTHER FINDINGS: None. IMPRESSION: Minor right basilar atelectasis
[2017-10-26] MEDS ORDERED: Potassium Chloride 20 mEq ER Tab PO STA (15:08)
[2017-10-26 15:16] LABS: PARTIAL THROMBOPLASTIN TIME 27.7 Seconds (25.6-37.1); PROTHROMBIN TIME 11.5 Seconds (9.8-13.1)
[2017-10-26] MEDS ORDERED: Potassium Chloride 20 mEq ER Tab PO ONE (16:11)
[2017-10-26] MEDS: Potassium Chl 20 mEq in D5-NS 1,000 ML IV SCH (22:18)
--- NOTE | 2017-10-27 00:45 | CON ---
ENDOCRINOLOGY CONSULT DATE: LOCATION: In room 407. HISTORY OF PRESENT ILLNESS: This is a 77-year-old female with longstanding history of hyperthyroidism, presenting here with generalized body weakness and worsening dizziness and lightheadedness prompting this ER consult and subsequent admission. She was also evaluated to have marked hypokalemia as noted thereof. PAST MEDICAL HISTORY: As mentioned above, history of hyperthyroidism and currently on Tapazole given as 2.5 mg once daily, history of hypertension and dyslipidemia, history of generalized osteoarthritis with lower back pain, and also history of chronic anemia. FAMILY HISTORY: Positive for hypertension and heart disease. SOCIAL HISTORY: The patient has a supportive family. No known substance use. REVIEW OF SYSTEMS: As mentioned above. Admits to generalized body weakness with easy fatigability and tiredness and suboptimal energy level, worse in the last 2-3 weeks prior to admission. Also admits to progressive dizziness and lightheadedness, worse in the last 2-3 days prior to admission. No chest pains, but admits to episodic palpitations with progressive shortness of breath initially on exertion and then at rest. Her oral intake has been variable with nausea, dyspepsia, and vague upper abdominal pains. No recent alterations of bowel or urinary patterns. PHYSICAL EXAMINATION: GENERAL: This is an average built female in no apparent distress. VITAL SIGNS: Blood pressure of 120/70, pulse of 100 beats per minute and regular, temperature 98, respirations 20, height is 5 feet 4 inches, and weight is 132 pounds. HEENT: Head Is normocephalic. Eyes; anicteric with pink conjunctivae. Funduscopy not possible at this time. Ears, nose, and throat otherwise normal. NECK: Supple. Thyroid gland shows nodular thyromegaly, which is firm and nontender with no overt thyroid bruits or cervical adenopathy nor palpable thyroid nodules. CARDIOPULMONARY: Some adynamic precordium. S1 and S2 is rapid and regular. LUNGS: Clear to auscultation. ABDOMEN: Flat and soft with positive bowel sounds. EXTREMITIES: No peripheral edema. Pulses are +2 bilaterally. LABORATORY DATA: Her hemoglobin is 9.1, hematocrit of 29.4, MCV 67, and platelets 337. The chemistry showed a BUN of 15, sodium 140, potassium 2.8, chloride 92, CO2 of 37, glucose 112, and creatinine 0.7. Her TSH level is less than 0.02 and her free T4 is 1.86. Troponin is less than 0.01. Glucose is 112 as noted. ASSESSMENT AND PLAN: This is a 77-year-old female with overt hyperthyroidism both historically, clinically, and biochemically most likely related to underlying Graves disease or the so-called euthyroid Graves disease, quite common in the elderly, from underlying autoimmune thyroiditis. She also has a diffuse toxic goiter with no overt compressive or obstructive manifestations as noted. The marked hypokalemia can clearly be related to the underlying hyperthyroidism with altered potassium-sodium channel exchange causing the supervening hypokalemia at this time as noted. Plan of management as discussed with the patient and staff. We will modify her Tapazole medications to higher dose of 5 mg p.o. t.i.d. as ordered. We will do a comprehensive thyroid hormonal profile with a total T4 or thyroxine level and a free T4 and TSH as ordered for tomorrow morning and this will help as titrate her dose regimen accordingly. A TSH receptor antibody or the so-called thyroid stimulating immunoglobulin and a thyroid peroxidase antibody will be obtained, which will confirm and/or indicate the presence of underlying thyroid autoimmunity. We will obtain serial chemistries and supplement accordingly as needed. We will also obtain a serum cortisol and vitamin D level as ordered. We will follow. Victoria Wade MD
[2017-10-27 08:30] LABS: T4 10.2 ug/dl (5.5-11.0)
[2017-10-27 08:32] LABS: HEMOGLOBIN 8.4 g/dL (12.0-16.0); MEAN CELL VOLUME 71.9 fl (81.0-99.0); MEAN CORPUSCULAR HEMOGLOBIN 22.3 pg (27.0-31.0); RBC 3.74 Mil/uL (3.80-5.20)
[2017-10-27 08:40] LABS: ALB/GLOB RATIO 0.9 (1.0-2.1); ALT/SGPT 28 U/L (9-52); AST/SGOT 17 U/L (14-36); BLOOD UREA NITROGEN 12 mg/dl (7-17); CALCIUM 8.7 mg/dL (8.4-10.2); GFR AFRICAN-AMERICAN > 60; GFR NON-AFRICAN AMERICAN > 60
[2017-10-27] MEDS ORDERED: methIMAzole 5 MG TAB PO SCH (09:00)
[2017-10-27] MEDS: methIMAzole 5 MG TAB PO SCH ×3 (09:55→18:04)
[2017-10-27 10:21] LABS: IRON 17 ug/dL (37-170)
[2017-10-27 10:30] LABS: % IRON SATURATION 6 % (20-55); TOTAL IRON BINDING CAPACITY 278 ug/dL (250-450)
[2017-10-27 10:49] LABS: FERRITIN 12.7 ng/Ml (11.1-264.0)
[2017-10-27 11:29] LABS: RED CELL DISTRIBUTION WIDTH 22.9 % (11.5-14.5)
--- NOTE | 2017-10-27 12:03 | HP ---
HISTORY OF PRESENT ILLNESS: Ms. Mcdonald is a 77-year-old female who was admitted via the Emergency Room because of generalized weakness, lightheadedness, and feeling of fainting spells over the past 3 weeks. She was recently discharged from [facility] for similar problems, also associated with hypokalemia and anemia. She was worked up on other problems corrected prior to discharge. Last time, she felt better, went home, but symptoms record. She has a primary care doctor in [place] and had seen primary care doctor and was scheduled to have colonoscopy and endoscopy done as an outpatient, but returned to the hospital because symptoms worsened. PAST MEDICAL HISTORY: She has past medical history of anemia, back problems, hypothyroidism/hyperthyroidism, and depression. MEDICATIONS AT HOME: Include Zoloft, ferrous sulfate, potassium, and Tapazole. FAMILY HISTORY: Non-revealing. SOCIAL HISTORY: She does not drink or smoke. REVIEW OF SYSTEMS: Remarkable for generalized malaise, feeling weak and tired. PHYSICAL EXAMINATION: GENERAL: The patient is alert and oriented, still feels weak. VITAL SIGNS: Blood pressure 120/70 with the pulse of 100, respiratory rate of 18-20 per minute, she is afebrile, O2 sat 99% on room air. SKIN: Shows fair turgor. HEENT: Pupils are equal and reactive to light and accommodation with pale conjunctivae. Mouth shows fair hygiene. JVP flat. LUNGS: Clear. HEART: Regular. No murmurs or gallop. BREASTS: Normal. ABDOMEN: Soft and nontender. No organomegaly. EXTREMITIES: Shows no edema or cyanosis. CENTRAL NERVOUS SYSTEM: Grossly intact. LABORATORY DATA: Remarkable for sodium of 140, potassium of 2.8, BUN of 15, and creatinine of 0.7. TSH less than 0.02. T4 free 1.86. Troponin less than 0.01. Glucose 112. Hemoglobin 9.1, MCV 67, and platelets 337,000. EKG official report pending, but read by me, remarkable for normal sinus rhythm. No ST-T changes. IMPRESSION: Weakness with dizziness and near syncope probably multifactorial, secondary to thyroid disease, one has to rule out adrenal insufficiency and the patient with persistent hypokalemia. The patient also has severe anemia, one has to rule out gastrointestinal blood loss, history of depression. PLAN: Endocrine evaluation to rule out cause of hypokalemia and thyroid disorder. We would also obtain Hematology evaluation to work up for anemia and Gastroenterology evaluation for possible endoscopy and colonoscopy to rule out GI blood loss. The patient would undergo iron replacement therapy for now and IV hydration. Further therapy will depend on findings. She will be monitored in telemetry until etiology of the above is ruled out. Archie Hernandez MD
--- NOTE | 2017-10-27 12:50 | CARD ---
APPROVED REPORT EKG Measurement Heart [id number] ID [id number] <Conclusion> Normal sinus rhythm Non-specific ST-T changes
--- NOTE | 2017-10-27 13:56 | PN ---
DATE: ENDO FOLLOWUP NOTE LOCATION: Room 407. SUBJECTIVE: This is a 77-year-old female with known history of hyperthyroidism, presenting here with generalized body weakness and progressive dizziness and lightheadedness and is now being followed closely for metabolic management. She was found to have overt hyperthyroidism and dose adjustments were undertaken thereof. Her latest chemistries today showed BUN of 12, sodium of 140, potassium of 3.2, chloride of 101, CO2 of 33, glucose of 107, and creatinine of 0.6. Her thyroid study showed T4 of 10.2 with TSH of less than 0.02 and free T4 of 1.78 and serum cortisol of 7.0 . ASSESSMENT: This is a 77-year-old female with overt hyperthyroidism and marked hypokalemia on admission with generalized body weakness and severe bouts of dizziness and lightheadedness and is now being followed closely for metabolic management. She has overt hyperthyroidism both historically, clinically, and biochemically related to subtherapeutic medical management at this time. Her hypokalemia is also related to the overt hyperthyroidism as noted thereof. PLAN OF MANAGEMENT: As discussed with the patient and staff, we will continue her Tapazole at a modified dose of 5 mg p.o. t.i.d. after meals as ordered. We will continue the serial chemistries and potassium supplementation as given. We will obtain a thyroid stimulating immunoglobulin and thyroid peroxidase antibody, which we will confirm the presence of underlying thyroid autoimmunity. We will follow and advice accordingly. Victoria Wade MD
[2017-10-27] MEDS: Potassium Chl 20 mEq in D5-NS 1,000 ML IV SCH (14:28)
[2017-10-27 21:09] LABS: FOLATE 12.6 ng/mL
[2017-10-28] MEDS: Potassium Chl 20 mEq in D5-NS 1,000 ML IV SCH ×2 (00:07→11:00)
[2017-10-28 05:56] LABS: BASO # 0.1 K/uL (0.0-0.2); BASO % 1.4 % (0.0-2.0); EOS # 0.2 K/uL (0.0-0.7); EOS % 4.7 % (0.0-4.0); HEMOGLOBIN 8.3 g/dL (12.0-16.0); LYMPH # 1.1 K/uL (1.0-4.3); LYMPH % 24.1 % (20.0-40.0); MEAN CELL VOLUME 73.4 fl (81.0-99.0); MEAN CORPUSCULAR HEMOGLOBIN 22.7 pg (27.0-31.0); MEAN CORPUSCULAR HGB CONC 30.9 g/dL (33.0-37.0); MEAN PLATELET VOLUME 8.9 fl (7.2-11.7); MONO # 0.7 K/uL (0.0-0.8); MONO % 15.7 % (0.0-10.0); NEUT # 2.4 K/uL (1.8-7.0); NEUT % 54.1 % (50.0-75.0); RBC 3.67 Mil/uL (3.80-5.20); RED CELL DISTRIBUTION WIDTH 23.8 % (11.5-14.5); WHITE BLOOD COUNT 4.4 K/uL (4.8-10.8)
[2017-10-28 06:01] LABS: BLOOD UREA NITROGEN 10 mg/dl (7-17); CALCIUM 8.5 mg/dL (8.4-10.2); GFR AFRICAN-AMERICAN > 60; GFR NON-AFRICAN AMERICAN > 60
--- NOTE | 2017-10-28 07:12 | CON ---
DATE: 10/27/2017 REFERRED BY: Archie Hernandez MD HISTORY OF PRESENT ILLNESS: This is a very pleasant 77-year-old Citizen Of [place] woman who was admitted with lightheadedness, dizziness, and found to be anemic. She has had this anemia for sometime now and had never made it as an outpatient to be evaluated for her GI workup. She denies any nausea, vomiting, odynophagia or dysphagia. There has been no hematemesis or hematochezia. No abdominal pain or discomfort. No black stools, although her stools have been dark, so she is started taking iron supplementation. ALLERGIES: SHE HAS AN ALLERGY TO PENICILLIN. MEDICATIONS: She is on Tapazole, Zoloft, and iron supplementation. PAST MEDICAL HISTORY: Hyperthyroidism and anxiety. PAST SURGICAL HISTORY: Noncontributory. FAMILY HISTORY: Noncontributory. SOCIAL HISTORY: Former smoker, quit 2 year ago. No alcohol or drug use. PHYSICAL EXAMINATION: GENERAL: A well-developed, well-nourished woman, awake, alert and oriented x3, in no acute distress. VITAL SIGNS: Stable. She is afebrile. ABDOMEN: Soft. Good bowel sounds, nontender and nondistended. No hepatosplenomegaly is appreciated. No palpable masses or lesions. LABORATORY DATA: Initial hemoglobin yesterday was 9.1, today it is 8.4, she also has low MCV, platelet count is normal. SMA-7 is remarkable for hypokalemia. Her potassium was 2.8 yesterday. Today, with supplementation, it is up to 3.2. Her iron studies are consistent with iron deficiency. Her LFTs were within normal limits. IMPRESSION AND PLAN: This is a 77-year-old woman with anemia of unknown etiology. Denies any gastrointestinal symptomatology. Stool guaiacs have not been done, but workup which would include both upper and lower endoscopy to rule out an underlying source of blood loss. I discussed this with her. She is agreeable to it. We will keep her n.p.o. after midnight to make for possible endoscopy tomorrow, unfortunately, she ate solid food today, so it will be too late for prep for colonoscopy, so we will address that after the endoscopy is done and make further recommendations accordingly. Martín Webster MD
--- NOTE | 2017-10-28 08:39 | CP.PCM.PN ---
Subjective - Date & Time of Evaluation Date of Evaluation: 10/28/17 Time of Evaluation: 08:39 - Subjective Subjective: clinically improving no change in bowel habits Objective - Vital Signs/Intake and Output Vital Signs (last 24 hours): Temp Pulse Resp BP Pulse Ox 98.4 F 65 18 105/70 97 10/28/17 08:06 10/28/17 08:06 10/28/17 08:06 10/28/17 08:06 10/28/17 08:06 Intake and Output: 10/28/17 10/28/17 06:59 18:59 Intake Total 3120 Balance 3120 - Medications Medications: Current Medications Ferrous Sulfate (Feosol) 325 mg PO BID [facility] Last Admin: 10/27/17 20:02 Dose: 325 mg Potassium Chloride/Dextrose/Sod Cl (Potassium Chl 20 Meq In D5-Ns) 1,000 mls @ 80 mls/hr IV [id number] [facility] Stop: 10/28/17 21:11 Last Admin: 10/28/17 00:07 Dose: 80 mls/hr Methimazole (Tapazole) 5 mg PO TID [facility] Last Admin: 10/27/17 18:04 Dose: 5 mg Sertraline HCl (Zoloft) 50 mg PO DAILY [facility] Last Admin: 10/27/17 09:55 Dose: 50 mg - Labs Labs: 10/28/17 04:20 10/28/17 04:20 PT 11.5 Seconds (9.8-13.1) 10/26/17 14:07 INR 1.0 (0.9-1.2) 10/26/17 14:07 APTT 27.7 Seconds (25.6-37.1) 10/26/17 14:07 - Constitutional Appears: No Acute Distress - Head Exam Head Exam: ATRAUMATIC, NORMAL INSPECTION, NORMOCEPHALIC - Eye Exam Eye Exam: EOMI, Normal appearance, PERRL Pupil Exam: NORMAL ACCOMODATION, PERRL - ENT Exam ENT Exam: Mucous Membranes Moist, Normal Exam - Neck Exam Neck Exam: Full ROM, Normal Inspection. absent: Lymphadenopathy - Respiratory Exam Respiratory Exam: Clear to Ausculation Bilateral, NORMAL BREATHING PATTERN - Cardiovascular Exam Cardiovascular Exam: REGULAR RHYTHM, +S1, +S2. absent: Murmur - GI/Abdominal Exam GI & Abdominal Exam: Soft, Normal Bowel Sounds. absent: Tenderness - Rectal Exam Rectal Exam: NORMAL INSPECTION - Extremities Exam Extremities Exam: Full ROM, Normal Capillary Refill, Normal Inspection. absent : Joint Swelling, Pedal Edema - Back Exam Back Exam: NORMAL INSPECTION - Neurological Exam Neurological Exam: Alert, Awake, CN II-XII Intact, Normal Gait, Oriented x3 - Psychiatric Exam Psychiatric exam: Normal Affect, Normal Mood - Skin Skin Exam: Dry, Intact, Normal Color, Warm Assessment and Plan - Assessment and Plan (Free Text) Assessment: near syncope hypokalemia worsening anemia thyroid dz Plan: for egd today to determine souce of blood loss continue rx as ordered
[2017-10-28] MEDS: methIMAzole 5 MG TAB PO SCH ×4 (08:59→17:09)
[2017-10-28] MEDS: Pantoprazole 40 mg EC Tab PO SCH (17:11)
--- NOTE | 2017-10-29 00:04 | CARD ---
APPROVED REPORT EKG Measurement Heart [id number] <Conclusion> Normal sinus rhythm Cannot rule out Anterior infarct, age undetermined Abnormal ECG
--- NOTE | 2017-10-29 00:15 | CP.PCM.CON ---
History of Present Illness - History of Present Illness History of Present Illness: 77 year old female with a history of hyperthyroidism, admitted with symptomatic anemia. The patient notes to increasing fatigue and light headedness. She was supposed to have a GI work as an outpatient but due to symptomats came to the ER. She denies abnormal bleeding and bruising. Past medical history: Hyperthyroidism past surgical history: Toe surgery Family history: Denies hematologic and oncologic problems Social history: Denies tobacc, alcohol, and illicit drug use. Allergies: Penicillins Review of systems: All remaining review of systems including HEENT, cardiovacular, respiratory, gastrointestinal, genitourinary, musculoskeletal, dermatologic, neurologic, and psychiatric are negative unless mentioned in the HPI. Past Patient History - Past Medical History & Family History Past Medical History?: Yes - Past Social History Smoking Status: Former Smoker - CARDIAC Hx Cardiac Disorders: No - PULMONARY Hx Respiratory Disorders: No - NEUROLOGICAL Hx Neurological Disorder: Yes Hx Syncope: Yes Hx Vertigo: Yes - HEENT Hx HEENT Problems: No - RENAL Hx Chronic Kidney Disease: Yes (renal colic) - ENDOCRINE/METABOLIC Hx Endocrine Disorders: Yes Hx Hypothyroidism: Yes - HEMATOLOGICAL/ONCOLOGICAL Hx Blood Disorders: Yes Hx AIDS: Yes Hx Human Immunodeficiency Virus (HIV): No - INTEGUMENTARY Hx Dermatological Problems: No - MUSCULOSKELETAL/RHEUMATOLOGICAL Hx Musculoskeletal Disorders: Yes Hx Back Pain: Yes Hx Falls: No - GASTROINTESTINAL Hx Gastrointestinal Disorders: No - GENITOURINARY/GYNECOLOGICAL Hx Genitourinary Disorders: No - PSYCHIATRIC Hx Psychophysiologic Disorder: Yes Hx Depression: Yes Hx Substance Use: No - SURGICAL HISTORY Hx Surgeries: No - ANESTHESIA Hx Anesthesia: Yes Hx Anesthesia Reactions: No Hx Malignant Hyperthermia: No Has any member of the family had a problem w/ anesthesia?: No Meds Allergies/Adverse Reactions: Allergies Allergy/AdvReac Type Severity Reaction Status Date / Time Penicillins Allergy RASH Verified 03/30/17 15:26 - Medications Medications: Current Medications Iron Sucrose 200 mg/ Sodium (Chloride) 110 mls @ 110 mls/hr IVPB DAILY [facility] Last Admin: 10/28/17 17:13 Dose: 110 mls/hr Methimazole (Tapazole) 5 mg PO TID [facility] Last Admin: 10/28/17 17:09 Dose: 5 mg Pantoprazole Sodium (Protonix Ec Tab) 40 mg PO DAILY [facility] Last Admin: 10/28/17 17:11 Dose: 40 mg Sertraline HCl (Zoloft) 50 mg PO DAILY [facility] Last Admin: 10/28/17 11:00 Dose: 50 mg Results - Vital Signs Recent Vital Signs: Last Vital Signs Temp 98.2 F 10/28/17 19:38 Pulse 77 10/28/17 19:38 Resp 20 10/28/17 19:38 BP 123/71 10/28/17 19:38 Pulse Ox 96 10/28/17 19:38 - Labs Result Diagrams: 10/28/17 04:20 10/28/17 04:20 Labs: Laboratory Results - last 24 hr 10/27/17 10/28/17 10/28/17 06:45 04:20 04:20 WBC 4.4 L RBC 3.67 L Hgb 8.3 L Hct 26.9 L MCV 73.4 L MCH 22.7 L MCHC 30.9 L RDW 23.8 H Plt Count 261 MPV 8.9 Neut % (Auto) 54.1 Lymph % (Auto) 24.1 Evangeline % (Auto) 15.7 H Eos % (Auto) 4.7 H Baso % (Auto) 1.4 Neut # (Auto) 2.4 Lymph # (Auto) 1.1 Evangeline # (Auto) 0.7 Eos # (Auto) 0.2 Baso # (Auto) 0.1 Sodium 143 Potassium 3.5 L Chloride 105 Carbon Dioxide 29 Anion Gap 13 BUN 10 Creatinine 0.5 L Est GFR ( Amer) > 60 Est GFR (Non-Af Amer) > 60 Random Glucose 105 Calcium 8.5 Stool Occult Blood Thyroperoxidase Ab <1 10/28/17 17:43 WBC RBC Hgb Hct MCV MCH MCHC RDW Plt Count MPV Neut % (Auto) Lymph % (Auto) Evangeline % (Auto) Eos % (Auto) Baso % (Auto) Neut # (Auto) Lymph # (Auto) Evangeline # (Auto) Eos # (Auto) Baso # (Auto) Sodium Potassium Chloride Carbon Dioxide Anion Gap BUN Creatinine Est GFR ( Amer) Est GFR (Non-Af Amer) Random Glucose Calcium Stool Occult Blood Negative Thyroperoxidase Ab Assessment & Plan (1) Anemia Assessment and Plan: work up consistent with iron deficiency anemia will start on IV iron GI w/u borderline b12 level; will supplement with IM b12 Status: Acute (2) Leukopenia Assessment and Plan: likely benign no neutropenia Thank you for this interesting consult. Status: Acute
--- NOTE | 2017-10-29 02:44 | PN ---
ENDOCRINOLOGY FOLLOWUP NOTE DATE: LOCATION: In room 407. SUBJECTIVE: This is a 77-year-old female with recent admission for generalized body weakness and supervening marked hypokalemia and was also found to have overt hyperthyroidism and is now being followed closely for metabolic management. She has received potassium supplementation and is improving both clinically and metabolically as noted thereof. The repeat chemistry showed a BUN of 10, sodium 143, potassium 3.5, chloride 105, CO2 of 29, glucose 105, and creatinine 0.5. The repeat thyroid study showed a T4 of 10.2 mcg/dL with a TSH of less than 0.02 and a free T4 of 1.78. So, at this time, we will continue the modified and higher dosing for the Tapazole given as 5 mg p.o. t.i.d. after meals as ordered. We will continue the potassium supplementation as given and also IV hydration as given to. We will obtain serial chemistries and supplement accordingly as needed. We will awaiting the reports of the thyroid antibodies to include the thyroid peroxidase and thyroid stimulating immunoglobulin, which will confirm and/or indicate the presence of underlying thyroid autoimmunity. For inpatient use, we will continue the Tapazole given as 5 mg p.o. t.i.d. after meals as ordered. However for eventual discharge would modify the Tapazole to a more convenient dosing of just 10 mg once daily as ordered. We will obtain serial thyroid studies and titrate her dose regimen accordingly. We will follow. Victoria Wade MD
[2017-10-29 06:03] LABS: BLOOD UREA NITROGEN 13 mg/dl (7-17); CALCIUM 8.8 mg/dL (8.4-10.2); GFR AFRICAN-AMERICAN > 60; GFR NON-AFRICAN AMERICAN > 60
[2017-10-29 06:12] LABS: HEMOGLOBIN 8.5 g/dL (12.0-16.0); MEAN CELL VOLUME 69.3 fl (81.0-99.0); MEAN CORPUSCULAR HEMOGLOBIN 21.7 pg (27.0-31.0); MEAN CORPUSCULAR HGB CONC 31.4 g/dL (33.0-37.0); RBC 3.91 Mil/uL (3.80-5.20); WHITE BLOOD COUNT 4.9 K/uL (4.8-10.8)
[2017-10-29] MEDS: methIMAzole 5 MG TAB PO SCH ×3 (08:16→16:54)
[2017-10-29] MEDS: Pantoprazole 40 mg EC Tab PO SCH (08:16)
--- NOTE | 2017-10-29 09:16 | CP.PCM.PN ---
Subjective - Date & Time of Evaluation Date of Evaluation: 10/29/17 Time of Evaluation: 09:16 - Subjective Subjective: CLINICALLY IMPROVING DENIES DIZZINESS NO ABDOMINAL PAINS/CHANGE IN BOWEL HABITS Objective - Vital Signs/Intake and Output Vital Signs (last 24 hours): Temp Pulse Resp BP Pulse Ox 98.1 F 63 18 122/70 97 10/29/17 07:45 10/29/17 07:45 10/29/17 07:45 10/29/17 07:45 10/29/17 07:45 - Medications Medications: Current Medications Cyanocobalamin (Vitamin B12 1000 Mcg/Ml Inj) 1,000 mcg IM DAILY [facility] Last Admin: 10/29/17 08:15 Dose: 1,000 mcg Iron Sucrose 200 mg/ Sodium (Chloride) 110 mls @ 110 mls/hr IVPB DAILY [facility] Last Admin: 10/28/17 17:13 Dose: 110 mls/hr Methimazole (Tapazole) 5 mg PO TID [facility] Last Admin: 10/29/17 08:16 Dose: Not Given Pantoprazole Sodium (Protonix Ec Tab) 40 mg PO DAILY [facility] Last Admin: 10/29/17 08:16 Dose: Not Given Sertraline HCl (Zoloft) 50 mg PO DAILY [facility] Last Admin: 10/29/17 08:16 Dose: Not Given - Labs Labs: 10/29/17 04:20 10/29/17 04:20 PT 11.5 Seconds (9.8-13.1) 10/26/17 14:07 INR 1.0 (0.9-1.2) 10/26/17 14:07 APTT 27.7 Seconds (25.6-37.1) 10/26/17 14:07 - Constitutional Appears: No Acute Distress - Head Exam Head Exam: ATRAUMATIC, NORMAL INSPECTION, NORMOCEPHALIC - Eye Exam Eye Exam: EOMI, Normal appearance, PERRL Pupil Exam: NORMAL ACCOMODATION, PERRL - ENT Exam ENT Exam: Mucous Membranes Moist, Normal Exam - Neck Exam Neck Exam: Full ROM, Normal Inspection. absent: Lymphadenopathy - Respiratory Exam Respiratory Exam: Clear to Ausculation Bilateral, NORMAL BREATHING PATTERN - Cardiovascular Exam Cardiovascular Exam: REGULAR RHYTHM, +S1, +S2. absent: Murmur - GI/Abdominal Exam GI & Abdominal Exam: Soft, Normal Bowel Sounds. absent: Tenderness - Rectal Exam Rectal Exam: NORMAL INSPECTION - Extremities Exam Extremities Exam: Full ROM, Normal Capillary Refill, Normal Inspection. absent : Joint Swelling, Pedal Edema - Back Exam Back Exam: NORMAL INSPECTION - Neurological Exam Neurological Exam: Alert, Awake, CN II-XII Intact, Normal Gait, Oriented x3 - Psychiatric Exam Psychiatric exam: Normal Affect, Normal Mood - Skin Skin Exam: Dry, Intact, Normal Color, Warm Assessment and Plan - Assessment and Plan (Free Text) Assessment: SEVERE ANEMIA--R/O GI BLOOD LOSS SEVERE HYPOKALEMIA--IMPROVED THYROID DISORDER Plan: SCHEDULED FOR EGD TODAY CONTINUE IRON TRANSFUSSION
--- NOTE | 2017-10-29 09:39 | CP.PCM.PN ---
Subjective - Date & Time of Evaluation Date of Evaluation: 10/28/17 Time of Evaluation: 09:05 - Subjective Subjective: no overnight events Objective - Vital Signs/Intake and Output Vital Signs (last 24 hours): Temp Pulse Resp BP Pulse Ox 98.1 F 63 18 122/70 97 10/29/17 07:45 10/29/17 07:45 10/29/17 07:45 10/29/17 07:45 10/29/17 07:45 - Medications Medications: Current Medications Cyanocobalamin (Vitamin B12 1000 Mcg/Ml Inj) 1,000 mcg IM DAILY [facility] Last Admin: 10/29/17 08:15 Dose: 1,000 mcg Iron Sucrose 200 mg/ Sodium (Chloride) 110 mls @ 110 mls/hr IVPB DAILY [facility] Last Admin: 10/28/17 17:13 Dose: 110 mls/hr Methimazole (Tapazole) 5 mg PO TID [facility] Last Admin: 10/29/17 08:16 Dose: Not Given Pantoprazole Sodium (Protonix Ec Tab) 40 mg PO DAILY [facility] Last Admin: 10/29/17 08:16 Dose: Not Given Sertraline HCl (Zoloft) 50 mg PO DAILY [facility] Last Admin: 10/29/17 08:16 Dose: Not Given - Labs Labs: 10/29/17 04:20 10/29/17 04:20 PT 11.5 Seconds (9.8-13.1) 10/26/17 14:07 INR 1.0 (0.9-1.2) 10/26/17 14:07 APTT 27.7 Seconds (25.6-37.1) 10/26/17 14:07 - Head Exam Head Exam: NORMOCEPHALIC - Neck Exam Neck Exam: Normal Inspection - Respiratory Exam Respiratory Exam: Clear to Ausculation Bilateral, NORMAL BREATHING PATTERN - Cardiovascular Exam Cardiovascular Exam: REGULAR RHYTHM - GI/Abdominal Exam GI & Abdominal Exam: Soft, Normal Bowel Sounds Assessment and Plan - Assessment and Plan (Free Text) Assessment: 77 yo female with anemia can be dc home with outpatient follow up as needed for egd +/- colonoscopy
--- NOTE | 2017-10-29 10:28 | PQF GENQUE ---
Dr. Hernandez, In agreement with the diagnosis of AIDS as listed in the Hematology consult versus AIDS ruled out? Versus: Exposure to HIV virus HIV positive/asymptomatic HIV infection status HIV with current or previous HIV-related condition (please specify condition) Nonspecific serologic evidence of HIV Other (please specify) OR Clinically unable to determine OR Unknown OR >Disagree with the Diagnosis Please also document all associated manifestations of HIV if diagnosis is ruled in 10/28: Hematology consult:Past Social History: HEMATOLOGICAL/ONCOLOGICAL: Hx Blood Disorders: Yes Hx AIDS: Yes Please also document all associated manifestations of HIV This form is a permanent part of the medical record Clarification of your documentation is requested to better reflect the severity of illness and intensity of treatment of your patient. Indicators present [] Specify: []NO HISTORY OF HIV/AIDS [] Specify: [] [] Specify: [] [] Specify: [] Location in the medical record that reflects the above clinical findings: [] Treatment Provided: [] PHYSICIAN'S RESPONSE Based on your medical judgment of the clinical indicators outlined above please clarify the following: [] Practitioner response [] If unable to determine, please check the box, sign and date. Present On Admission (POA) Indicator: [] Present at the time of admission [] Not present at the time of admission [] Clinically Undetermined In responding to this query, please exercise your independent professional judgment. The fact that a question is asked does not imply that any particular answer is desired or expected. Thank you for your clarification on this documentation. If you have any questions please call. * Thank you, Mariana Coughlin RN ext. #[phone] [facility]
[2017-10-29 13:23] LABS: TSI 92 % baseline (<140)
[2017-10-29] MEDS ORDERED: Lactated Ringer's 500 ML IV ONE (13:50)
[2017-10-29] MEDS ORDERED: Midazolam 2 MG/2 ML VIAL ONE (14:37)
[2017-10-29] MEDS ORDERED: Etomidate 20 mg/10ml Inj IV ONE (14:37)
[2017-10-29] MEDS ORDERED: Propofol 10 mg/ml Inj (20 ML) ONE (14:37)
[2017-10-29] MEDS ORDERED: Lidocaine PF 2% (5 ml) Inj (For Cardiac Arrhy) IV ONE (14:37)
--- NOTE | 2017-10-29 15:51 | PN ---
DATE: ENDO FOLLOWUP NOTE LOCATION: Room 407. SUBJECTIVE: This is a 77-year-old female with recent overt hyperthyroidism with progressive anemia and currently undergoing GI workup at this time and was actually scheduled today for an upper endoscopy as noted thereof. Her repeat hemoglobin today is 8.5 with hematocrit of 27.1 and MCV of 69.3. Her latest chemistry showed BUN of 13, sodium of 145, potassium of , chloride of 106, CO2 of 28, glucose of 94, and creatinine of 0.7. The repeat thyroid studies showed T4 of 10.2 with the TSH of less than 0.02 and free T4 of 1.78. So at this time, we will continue the low-dose Tapazole given as 5 mg p.o. t.i.d. after meals as ordered. We will continue also the serial chemistries and supplement accordingly as needed. We are waiting the reports of the thyroid antibodies, i.e., the thyroid stimulating immunoglobulin and the thyroid peroxidase antibody, which we will confirm and/or indicate the presence of underlying thyroid autoimmunity. Upon discharge, however, we will continue only once daily dosing of the Tapazole given as 10 mg once daily as ordered and this was explained to the patient at bedside today. We will follow and advice accordingly. Victoria Wade MD
--- NOTE | 2017-10-29 22:11 | CP.PCM.PN ---
Subjective - Date & Time of Evaluation Date of Evaluation: 10/29/17 Time of Evaluation: 20:00 - Subjective Subjective: Feeling better. Objective - Vital Signs/Intake and Output Vital Signs (last 24 hours): Temp Pulse Resp BP Pulse Ox 98.7 F 80 20 120/76 95 10/29/17 19:16 10/29/17 19:16 10/29/17 19:16 10/29/17 19:16 10/29/17 19:16 Intake and Output: 10/29/17 10/30/17 18:59 06:59 Intake Total 100 Balance 100 - Medications Medications: Current Medications Cyanocobalamin (Vitamin B12 1000 Mcg/Ml Inj) 1,000 mcg IM DAILY [facility] Last Admin: 10/29/17 08:15 Dose: 1,000 mcg Iron Sucrose 200 mg/ Sodium (Chloride) 110 mls @ 110 mls/hr IVPB DAILY [facility] Last Admin: 10/29/17 10:36 Dose: 110 mls/hr Methimazole (Tapazole) 5 mg PO TID [facility] Last Admin: 10/29/17 16:54 Dose: 5 mg Pantoprazole Sodium (Protonix Ec Tab) 40 mg PO DAILY [facility] Last Admin: 10/29/17 08:16 Dose: Not Given Sertraline HCl (Zoloft) 50 mg PO DAILY [facility] Last Admin: 10/29/17 21:28 Dose: 50 mg - Labs Labs: 10/29/17 04:20 10/29/17 04:20 PT 11.5 Seconds (9.8-13.1) 10/26/17 14:07 INR 1.0 (0.9-1.2) 10/26/17 14:07 APTT 27.7 Seconds (25.6-37.1) 10/26/17 14:07 - Head Exam Head Exam: ATRAUMATIC - Eye Exam Eye Exam: Normal appearance - ENT Exam ENT Exam: Mucous Membranes Dry - Respiratory Exam Respiratory Exam: NORMAL BREATHING PATTERN - Cardiovascular Exam Cardiovascular Exam: +S1, +S2 - GI/Abdominal Exam GI & Abdominal Exam: Normal Bowel Sounds - Extremities Exam Extremities Exam: Normal Inspection Assessment and Plan (1) Anemia Assessment & Plan: iron deficiency on IV iron borderline b12 on IM supplementation GI w/u H/H stable Status: Acute
[2017-10-30 00:22] VITALS: RESP 18
--- NOTE | 2017-10-30 05:10 | OP ---
DATE: 10/29/2017 REFERRED BY: Archie Hernandez MD This is a very pleasant 76-year-old woman who was referred with anemia and brought in today for an upper endoscopy. After obtaining informed consent, the patient placed in a left lateral decubitus position, sedated by anesthesiologist Dr. Fuentes and a complete upper endoscopy was performed using the Olympus gastroscope without incident or difficulty. Findings were as follows: Her esophagus was unremarkable its entire length with about 33 cm from the incisor. She did have a very large hiatus hernia. The scope was passed through this area down via the patent pylorus into the duodenum down to the third portion of the duodenum. She had some mild degree of duodenitis because she is from [facility], I did biopsies to rule out underlying celiac disease, although this seems unlikely grossly. Upon withdrawal back into the antrum, she has some erythema and edema of the antral mucosa was noted and biopsies were collected. Scope was placed in the retroflex position, revealed a very large hiatus hernia as well as multiple erosions of the gastric mucosa. Once straightened again the patient's pylorus, in the antrum, she had a mass like lesion which seems to be a pancreatic rest. Biopsies of these were collected and did appear benign. Upon further inspection of the gastric body mucosa, a clean based 1 cm ulceration and biopsies collected of that area as well. She tolerated the procedure well and she is in stable condition. She is to be discharged home. I started her back on heart healthy diet. She should take pantoprazole 40 mg daily and followup as an outpatient where she will need colonoscopy to be performed to continue workup. Martín Webster MD
[2017-10-30 06:11] LABS: BASO # 0.1 K/uL (0.0-0.2); EOS # 0.2 K/uL (0.0-0.7); EOS % 3.9 % (0.0-4.0); HEMOGLOBIN 8.4 g/dL (12.0-16.0); LYMPH # 1.1 K/uL (1.0-4.3); LYMPH % 22.6 % (20.0-40.0); MEAN CELL VOLUME 69.3 fl (81.0-99.0); MEAN CORPUSCULAR HEMOGLOBIN 21.5 pg (27.0-31.0); MEAN PLATELET VOLUME 8.8 fl (7.2-11.7); MONO # 0.7 K/uL (0.0-0.8); MONO % 13.6 % (0.0-10.0); NEUT # 2.8 K/uL (1.8-7.0); NEUT % 57.9 % (50.0-75.0); RBC 3.89 Mil/uL (3.80-5.20); WHITE BLOOD COUNT 4.9 K/uL (4.8-10.8)
[2017-10-30 06:26] LABS: T4 9.73 ug/dl (5.5-11.0)
[2017-10-30 06:58] LABS: ALB/GLOB RATIO 0.9 (1.0-2.1); ALT/SGPT 31 U/L (9-52); AST/SGOT 19 U/L (14-36); BLOOD UREA NITROGEN 17 mg/dl (7-17); CALCIUM 8.9 mg/dL (8.4-10.2); GFR AFRICAN-AMERICAN > 60; GFR NON-AFRICAN AMERICAN > 60
[2017-10-30] MEDS: Pantoprazole 40 mg EC Tab PO SCH (08:43)
[2017-10-30] MEDS: methIMAzole 5 MG TAB PO SCH ×2 (08:44→13:50)
--- NOTE | 2017-10-30 09:28 | CP.PCM.DIS ---
Provider - Provider Date of Admission: 10/27/17 09:20 Attending physician: Archie Hernandez MD Time Spent in preparation of Discharge (in minutes): 35 Diagnosis - Discharge Diagnosis (1) Gastritis Status: Acute (2) Hiatal hernia Status: Acute (3) Anemia Status: Acute (4) Dehydration Status: Acute (5) Dizziness Status: Acute (6) Hypokalemia Status: Acute (7) Leukopenia Status: Acute (8) Chronic anemia Status: Acute (9) Thyroid disorder Status: Acute Hospital Course - Lab Results Lab Results: Most Recent Lab Values WBC 4.9 K/uL (4.8-10.8) 10/30/17 04:20 RBC 3.89 Mil/uL (3.80-5.20) 10/30/17 04:20 Hgb 8.4 g/dL (12.0-16.0) L 10/30/17 04:20 Hct 27.0 % (34.0-47.0) L 10/30/17 04:20 MCV 69.3 fl (81.0-99.0) L 10/30/17 04:20 MCH 21.5 pg (27.0-31.0) L 10/30/17 04:20 MCHC 31.0 g/dL (33.0-37.0) L 10/30/17 04:20 RDW 24.0 % (11.5-14.5) H 10/30/17 04:20 Plt Count 234 K/uL (130-400) 10/30/17 04:20 MPV 8.8 fl (7.2-11.7) 10/30/17 04:20 Neut % (Auto) 57.9 % (50.0-75.0) 10/30/17 04:20 Lymph % (Auto) 22.6 % (20.0-40.0) 10/30/17 04:20 Wilcox % (Auto) 13.6 % (0.0-10.0) H 10/30/17 04:20 Eos % (Auto) 3.9 % (0.0-4.0) 10/30/17 04:20 Baso % (Auto) 2.0 % (0.0-2.0) 10/30/17 04:20 Neut # (Auto) 2.8 K/uL (1.8-7.0) 10/30/17 04:20 Lymph # (Auto) 1.1 K/uL (1.0-4.3) 10/30/17 04:20 Wilcox # (Auto) 0.7 K/uL (0.0-0.8) 10/30/17 04:20 Eos # (Auto) 0.2 K/uL (0.0-0.7) 10/30/17 04:20 Baso # (Auto) 0.1 K/uL (0.0-0.2) 10/30/17 04:20 PT 11.5 Seconds (9.8-13.1) 10/26/17 14:07 INR 1.0 (0.9-1.2) 10/26/17 14:07 APTT 27.7 Seconds (25.6-37.1) 10/26/17 14:07 Sodium 147 mmol/l (132-148) 10/30/17 04:20 Potassium 3.8 MMOL/L (3.6-5.0) 10/30/17 04:20 Chloride 107 mmol/L (98-107) 10/30/17 04:20 Carbon Dioxide 27 mmol/L (22-30) 10/30/17 04:20 Anion Gap 17 (10-20) 10/30/17 04:20 BUN 17 mg/dl (7-17) 10/30/17 04:20 Creatinine 0.6 mg/dl (0.7-1.2) L 10/30/17 04:20 Est GFR ( Amer) > 60 10/30/17 04:20 Est GFR (Non-Af Amer) > 60 10/30/17 04:20 Random Glucose 88 mg/dL (65-105) 10/30/17 04:20 Hemoglobin A1c 5.4 % (4.2-6.5) 10/27/17 06:45 Calcium 8.9 mg/dL (8.4-10.2) 10/30/17 04:20 Iron 17 ug/dL (37-170) L 10/27/17 10:05 TIBC 278 ug/dL (250-450) 10/27/17 10:05 % Saturation 6 % (20-55) L 10/27/17 10:05 Ferritin 12.7 ng/Ml (11.1-264.0) 10/27/17 10:05 Total Bilirubin 0.3 mg/dl (0.2-1.3) 10/30/17 04:20 AST 19 U/L (14-36) 10/30/17 04:20 ALT 31 U/L (9-52) 10/30/17 04:20 Alkaline Phosphatase 70 U/L (38-126) 10/30/17 04:20 Troponin I < 0.0120 ng/mL (0.00-0.120) 10/26/17 14:07 Total Protein 6.3 G/DL (6.3-8.2) 10/30/17 04:20 Albumin 3.0 g/dL (3.5-5.0) L 10/30/17 04:20 Globulin 3.3 gm/dL (2.2-3.9) 10/30/17 04:20 Albumin/Globulin Ratio 0.9 (1.0-2.1) L 10/30/17 04:20 Vitamin B12 286 pg/mL (239-931) 10/27/17 10:05 25-OH Vitamin D Total < 12.8 NG/ML (30.0-100.0) L 10/27/17 06:45 Folate 12.6 ng/mL 10/27/17 10:05 Free T4 1.78 ng/dL (0.78-2.19) 10/27/17 06:45 Thyroxine (T4) 9.73 ug/dl (5.5-11.0) 10/30/17 04:20 TSH 3rd Generation 0.02 mIU/ML (0.46-4.68) L 10/30/17 04:20 Thyroid Stim Immunoglob 92 % baseline (<140) 10/27/17 06:45 Cortisol AM Sample 7.0 ug/dL (4.46-22.7) 10/27/17 06:45 Stool Occult Blood Negative (NEGATIVE) 10/28/17 17:43 Thyroperoxidase Ab <1 IU/mL (<9) 10/27/17 06:45 - Hospital Course Hospital Course: CLINICALLY IMPROVED NO RECURRENCE OF DIZZINESS Discharge Exam - Head Exam Head Exam: ATRAUMATIC - Eye Exam Eye Exam: EOMI, Normal appearance, PERRL Pupil Exam: NORMAL ACCOMODATION, PERRL - GI/Abdominal Exam GI & Abdominal Exam: Normal Bowel Sounds - Rectal Exam Rectal Exam: NORMAL INSPECTION - Neurological Exam Neurological exam: Alert, CN II-XII Intact, Normal Gait, Oriented x3, Reflexes Normal - Psychiatric Exam Psychiatric exam: Normal Affect, Normal Mood - Skin Skin Exam: Dry, Intact, Normal Color, Warm Discharge Plan - Follow Up Plan Condition: FAIR Disposition: HOME/ ROUTINE Patient education suggested?: Yes Additional Instructions: DISCHARGE TODAY FOLLOW UP WITH PMD AND CRUSHER/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
--- NOTE | 2017-10-30 11:15 | CP.PCM.PN ---
Subjective - Date & Time of Evaluation Date of Evaluation: 10/30/17 Time of Evaluation: 10:30 - Subjective Subjective: No complaints. Objective - Vital Signs/Intake and Output Vital Signs (last 24 hours): Temp Pulse Resp BP Pulse Ox 98.1 F 72 18 110/61 95 10/30/17 07:56 10/30/17 07:56 10/30/17 07:56 10/30/17 07:56 10/30/17 07:56 - Medications Medications: Current Medications Cyanocobalamin (Vitamin B12 1000 Mcg/Ml Inj) 1,000 mcg IM DAILY [facility] Last Admin: 10/29/17 08:15 Dose: 1,000 mcg Iron Sucrose 200 mg/ Sodium (Chloride) 110 mls @ 110 mls/hr IVPB DAILY [facility] Last Admin: 10/30/17 10:14 Dose: 110 mls/hr Methimazole (Tapazole) 5 mg PO TID [facility] Last Admin: 10/30/17 08:44 Dose: 5 mg Pantoprazole Sodium (Protonix Ec Tab) 40 mg PO DAILY [facility] Last Admin: 10/30/17 08:43 Dose: 40 mg Sertraline HCl (Zoloft) 50 mg PO DAILY [facility] Last Admin: 10/30/17 08:43 Dose: 50 mg - Labs Labs: 10/30/17 04:20 10/30/17 04:20 PT 11.5 Seconds (9.8-13.1) 10/26/17 14:07 INR 1.0 (0.9-1.2) 10/26/17 14:07 APTT 27.7 Seconds (25.6-37.1) 10/26/17 14:07 - Head Exam Head Exam: ATRAUMATIC - Eye Exam Eye Exam: Normal appearance - ENT Exam ENT Exam: Mucous Membranes Dry - Respiratory Exam Respiratory Exam: NORMAL BREATHING PATTERN - Cardiovascular Exam Cardiovascular Exam: +S1, +S2 - GI/Abdominal Exam GI & Abdominal Exam: Normal Bowel Sounds Assessment and Plan (1) Anemia Assessment & Plan: iron deficiency s/p EGD on IV iron Status: Acute
[2017-10-30 12:08] VITALS: BP 106/52; PULSE 74; TEMP 98.7; O2SAT 96
--- NOTE | 2017-10-31 07:52 | PN ---
ENDOCRINOLOGY FOLLOWUP NOTE DATE: LOCATION: In room 407. SUBJECTIVE: This is a 77-year-old female with generalized body weakness and supervening marked hypokalemia and since then improved clinically and metabolically as noted thereof. She has received vigorous potassium supplementation both IV and parenteral as noted. Her latest chemistry showed BUN of 17, sodium 147, potassium 3.8, chloride 107, CO2 of 27, glucose 88 and creatinine 0.6. Her repeat thyroid studies showed a T4 of 9.72 with a TSH of 6.0. So at this time, we will continue Tapazole given as 10 mg once daily for outpatient thyroid management. given as Tapazole at 5 mg p.o. t.i.d. after meals as ordered. We will titrate accordingly . We will follow with you. Victoria Wade MD
== END 2017-10-30 15:24 | disposition home or self-care (01) | DRG 812 ==
LOC: H.ER 12:50 → H.ERHOLD 15:12 → H.TEL 16:55 → OBSVTOIN 10-27 09:20
PROVIDERS: ADMIT Internal Medicine Pulmonary Disease; ATTEND Internal Medicine Pulmonary Disease
PROC: 0DB68ZX Excision of Stomach, Via Natural or Artificial Opening Endoscopic, Diagnostic (ICD-10-PCS; 2017-10-29)
PROC: 0DB98ZX Excision of Duodenum, Via Natural or Artificial Opening Endoscopic, Diagnostic (ICD-10-PCS; principal; 2017-10-29 14:00)
DX: D50.9 Iron deficiency anemia, unspecified (principal); E86.0 Dehydration; E05.00 Thyrotoxicosis with diffuse goiter without thyrotoxic crisis or storm; E87.6 Hypokalemia; F32.9 Major depressive disorder, single episode, unspecified; Z88.0 Allergy status to penicillin; E78.5 Hyperlipidemia, unspecified; M15.9 Polyosteoarthritis, unspecified; E06.3 Autoimmune thyroiditis; F41.9 Anxiety disorder, unspecified; Z87.891 Personal history of nicotine dependence; D72.819 Decreased white blood cell count, unspecified; K44.9 Diaphragmatic hernia without obstruction or gangrene; K29.80 Duodenitis without bleeding; K25.9 Gastric ulcer, unspecified as acute or chronic, without hemorrhage or perforation; K29.70 Gastritis, unspecified, without bleeding; I10 Essential (primary) hypertension